=== PATIENT | female | born 1985 | race Two or more races ===

== ENCOUNTER 2023-07-30 13:46 | Emergency (ER) | payer SELFPAY ==
[~2023-07-30] VITALS: Ht 160 cm; Wt 75.0 kg
[2023-07-30 13:50] VITALS: TEMP 98.7
[2023-07-30 18:57] VITALS: BP 126/82; PULSE 96; RESP 16
== END 2023-07-30 19:18 | disposition home or self-care (01) ==
LOC: EMS 13:46
DX: M25.552 Pain in left hip (principal); Z59.00 Homelessness unspecified
CPT/HCPCS: 84703; 99283